=== PATIENT | male | born 1955 | race Caucasian/White ===

== ENCOUNTER → 2024-04-08 14:17 | Outpatient (REF) | payer MEDICARE, OTHER, SELFPAY | LOC: HWRAD 14:17 | PROVIDERS: ATTENDING PHYSICIAN Chiropractor; FAMILY PHYSICIAN Physician Assistant Medical | DX: M53.2X7 Spinal instabilities, lumbosacral region (principal); R10.2 Pelvic and perineal pain; M25.552 Pain in left hip | CPT/HCPCS: 72110; 73502 ==

== ENCOUNTER 2024-09-16 12:33 | Emergency (ER) | payer OTHER, SELFPAY ==
[2024-09-16 12:34] VITALS: BP 155/94
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
[2024-09-16] MEDS: LIDOCAINE 4% PATCH 1 PATCH TOPICAL (13:41)
[2024-09-16 15:45] VITALS: BP 134/84
--- NOTE | 2024-09-16 15:50 | EDRN ---
REviewed discharge instructions with patient. Verbalized understanding. Patient waiting for disk to be made of his X-ray and CT scan.
== END 2024-09-16 15:55 | disposition home or self-care (01) ==
LOC: EMR 12:33
PROVIDERS: EMERGENCY PHYSICIAN Emergency Medicine
DX: S16.1XXA Strain of muscle, fascia and tendon at neck level, initial encounter (principal); S39.012A Strain of muscle, fascia and tendon of lower back, initial encounter; V59.40XA Driver of pick-up truck or van injured in collision with unspecified motor vehicles in traffic accident, initial encounter
CPT/HCPCS: 99284; 70450; 72125; 73502